=== PATIENT | female | born 1965 | race Caucasian/White ===

== ENCOUNTER → 2017-11-10 09:53 | Outpatient (CLI) | payer OTHER, SELFPAY ==
[2017-11-10 12:33] LABS: Creatinine, Serum 0.81 mg/dL (0.55-1.02); EST Glomerular Filtration Rate 79 mL/min (>60); Est Glom Filt Rate - Afr Amer 96 mL/min (>60)
== END ==
PROVIDERS: Family Provider Family Medicine; PCP Family Medicine; Visit Provider Specialist
DX: Z01.818 Encounter for other preprocedural examination (principal)
CPT/HCPCS: 36415; 82565

== ENCOUNTER 2017-12-16 07:13 | Day surgery (SDC) | payer OTHER, SELFPAY ==
[2017-12-16 07:35] VITALS: BP 119/76; PULSE 53; RESP 16; TEMP 36.6; O2SAT 97; BMI 34.0
[2017-12-16] MEDS: Cefazolin 2 GM in 0.9% Normal Saline 100 ML IV (10:32)
[2017-12-16] MEDS: Bupivacaine Mpf 0.5% 30 ML VIAL (11:06)
--- NOTE | 2017-12-16 11:36 | PCM.IMDPSTOP ---
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
--- NOTE | 2017-12-16 11:39 | OP.PN_ITS ---
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
[2017-12-16 11:55] VITALS: BP 119/76; BP 135/85; PULSE 60; RESP 16; TEMP 36.5; O2SAT 93
[2017-12-16 12:00] VITALS: BP 119/76; BP 131/91; PULSE 61; RESP 14; O2SAT 94
[2017-12-16 12:15] VITALS: BP 119/76; BP 132/83; PULSE 54; RESP 14; O2SAT 100
[2017-12-16 12:28] VITALS: BP 119/76; BP 130/89; PULSE 54; RESP 14; TEMP 36.5; O2SAT 95
[2017-12-16 13:27] VITALS: BP 119/76
== END 2017-12-16 13:32 | disposition home or self-care (01) ==
LOC: SDC 07:13 → AC 07:14
PROVIDERS: Family Provider Family Medicine; PCP Family Medicine; Visit Provider Orthopaedic Surgery
PROC: (CPT 29827; principal; 2017-12-16 09:20)
DX: S46.011A Strain of muscle(s) and tendon(s) of the rotator cuff of right shoulder, initial encounter (principal); S43.431A Superior glenoid labrum lesion of right shoulder, initial encounter; M19.011 Primary osteoarthritis, right shoulder; I10 Essential (primary) hypertension; E66.3 Overweight; Z68.35 Body mass index [BMI] 35.0-35.9, adult; E78.00 Pure hypercholesterolemia, unspecified; I73.9 Peripheral vascular disease, unspecified; E07.9 Disorder of thyroid, unspecified; G43.909 Migraine, unspecified, not intractable, without status migrainosus; Z79.82 Long term (current) use of aspirin; Z79.899 Other long term (current) drug therapy; Z87.891 Personal history of nicotine dependence
CPT/HCPCS: 29826; 29827; 64415; J7120; J2405

== ENCOUNTER 2020-03-27 14:00 | Outpatient (RCR) | payer OTHER, SELFPAY | END 2020-03-27 23:59 | LOC: NS 14:00 | PROVIDERS: Visit Provider Family Medicine | DX: Z71.3 Dietary counseling and surveillance (principal); E11.9 Type 2 diabetes mellitus without complications; Z68.37 Body mass index [BMI] 37.0-37.9, adult | CPT/HCPCS: 97802; 97803 ==

== ENCOUNTER 2020-04-25 10:00 | Outpatient (RCR) | payer OTHER, SELFPAY | END 2020-04-27 23:59 | LOC: NS 10:00 | PROVIDERS: Visit Provider Family Medicine | DX: Z71.3 Dietary counseling and surveillance (principal); E11.9 Type 2 diabetes mellitus without complications; Z68.37 Body mass index [BMI] 37.0-37.9, adult | CPT/HCPCS: 97803 ==

== ENCOUNTER 2020-05-21 13:22 | Outpatient (RCR) | payer OTHER, SELFPAY | END 2020-05-27 23:59 | LOC: NS 13:22 | PROVIDERS: Visit Provider Family Medicine | DX: Z71.3 Dietary counseling and surveillance (principal); E11.9 Type 2 diabetes mellitus without complications; Z68.37 Body mass index [BMI] 37.0-37.9, adult | CPT/HCPCS: 97803 ==

== ENCOUNTER 2020-07-01 13:25 | Outpatient (RCR) | payer OTHER, SELFPAY | END 2020-07-18 23:59 | disposition home or self-care (01) | LOC: NS 13:25 | PROVIDERS: Visit Provider Family Medicine | DX: Z71.3 Dietary counseling and surveillance (principal); E11.9 Type 2 diabetes mellitus without complications; Z68.37 Body mass index [BMI] 37.0-37.9, adult | CPT/HCPCS: 97803 ==